=== PATIENT | female | born 1975 | race Caucasian/White ===

== ENCOUNTER → 2017-08-11 | Outpatient (CLI) | payer BC ==
[~2017-08-11] MED LIST: ACET-1256 PO; PRENTAB26 PO
--- NOTE | 2017-08-12 14:19 | MAMMOGRAPHY REPORT ---
BILATERAL DIGITAL SCREENING MAMMOGRAM TOMOSYNTHESIS WITH CAD: 08/11/2017 CLINICAL HISTORY: Routine screening. Patient has no complaints. TECHNIQUE: Breast tomosynthesis in addition to standard 2D mammography was performed. Current study was also evaluated with a Computer Aided Detection (CAD) system. COMPARISON: Comparison is made to exams dated: 08/07/2016 mammogram and 05/17/2015 mammogram - [facility]. BREAST COMPOSITION: There are scattered areas of fibroglandular density in both breasts. FINDINGS: Stable asymmetry in the superior left breast. No suspicious mass, architectural distortion or cluster of microcalcifications is seen. IMPRESSION: ACR BI-RADS CATEGORY 1: NEGATIVE There is no mammographic evidence of malignancy. A 1 year screening mammogram is recommended. The pa tient will receive written notification of the results. Approximately 10% of breast cancers are not detected with mammography. A negative mammographic report should not delay biopsy if a clinically suggestive mass is present. Nusrat Perkins M.D. ay/:08/11/2017 17:31:48 Technical Aid: Crystal Choi, [facility] letter sent: Normal 1/2 BI-RADS Code: ACR BI-RADS Category 1: Negative
== END | disposition home or self-care (01) ==
LOC: C.MAMM 08:19
PROVIDERS: ATTEND Obstetrics & Gynecology
DX: Z12.31 Encounter for screening mammogram for malignant neoplasm of breast (principal)

== ENCOUNTER → 2017-12-02 | Outpatient (CLI) | payer BC, OTHER | END | disposition home or self-care (01) | LOC: C.PAPS 10:56 | PROVIDERS: ATTEND Obstetrics & Gynecology | DX: Z12.4 Encounter for screening for malignant neoplasm of cervix (principal); R87.610 Atypical squamous cells of undetermined significance on cytologic smear of cervix (ASC-US) ==

== ENCOUNTER 2023-08-10 00:41 | Observation (INO) ==
[2023-08-10] MEDS ORDERED: SODIUM CHLORIDE 0.9% 1,000 ML IV STA (00:53)
[2023-08-10] MEDS ORDERED: dilTIAZem HCl 5 MG/ML 5 ML VIAL IV STA ×2 (00:53→01:05)
[2023-08-10] MEDS ORDERED: STAT IV Infusion **Titration per Protocol STA (00:53)
[2023-08-10 01:24] LABS: Hemoglobin 15.1 g/dl (12.0-16.0); Mean Corpuscular Hemoglobin 29.8 pg (25.0-34.0); Mean Corpuscular Hgb Conc 34.3 g/dL (32.0-36.0); Mean Corpuscular Volume 86.8 fL (80.0-100.0); Mean Platelet Volume 11.2 fL (9.4-12.4); Platelet Count 279 K/uL (130-400); RDW Standard Deviation 40.7 fL (36.4-46.3); Red Blood Count 5.07 M/uL (4.20-5.40); White Blood Count 7.88 K/ul (4.8-10.8)
[2023-08-10] MEDS: dilTIAZem HCL 125 MG in DEXTROSE 5% 100 ML IV SCH ×2 (01:30→15:13)
[2023-08-10 01:33] LABS: Albumin Globulin Ratio 1.6 (0.9-2); Albumin Level 4.2 gm/dl (3.4-5.0); BUN Creatinine Ratio 20.8 (10-20); Bilirubin,Total 0.4 mg/dl (0.2-1.0); Creatinine Clr Calc Pharmacy 82.7 ml/min; Est GFR (African American) 105.1 ml/min; Est GFR (Non-African American) 90.7 ml/min; Globulin 2.6 gm/dl (2.5-4.0); Potassium 3.6 mmol/L (3.5-5.1); Pregnancy Test, Serum Negative (Negative); Total Protein 6.8 gm/dl (6.0-8.3)
[2023-08-10 01:44] LABS: Basophils # (auto) 0.06 K/uL (0.00-0.20); Basophils % (auto) 0.8 %; Eosinophils # (auto) 0.21 K/uL (0.00-0.50); Eosinophils % (auto) 2.7 %; Immature Granulocytes # (auto) 0.01 K/uL (0.01-0.20); Immature Granulocytes % (auto) 0.1 %; Lymphocytes # (auto) 4.18 K/uL (1.20-3.40); Monocytes # (auto) 0.64 K/uL (0.11-0.59); Monocytes % (auto) 8.1 %; Neutrophils # (auto) 2.78 K/uL (1.40-6.50); Neutrophils % (auto) 35.3 %
[2023-08-10 01:48] LABS: Thyroid Stimulating Hormone 4.555 uIu/ml (0.300-4.500)
[2023-08-10 01:57] LABS: Partial Thromboplastin Ratio 1.1; Partial Thromboplastin Time 29.8 Seconds (21.0-31.0); Prothrombin Time 10.6 Seconds (9.0-12.0)
[2023-08-10 02:23] LABS: T4 Free Thyroxine 1.01 ng/dl (0.61-1.60)
--- NOTE | 2023-08-10 02:23 | History & Physical Report ---
Date of Service August 10, 2023 Assessment & Plan (1) Atrial fibrillation with rapid ventricular response: Plan: -New onset atrial fibrillation w/ RVR, known time of onset <48 hours though unclear precipitant or trigger per pt's history -Pt hemodynamically stable at present -Electrolytes wnl, TSH unremarkable -Currently in atrial fibrillation with rates improving on diltiazem infusion, goal HR <110 -Continue diltiazem infusion at present -[id number] of 1, deferring anticoagulation on admission -TTE ordered -Cardiology consult placed for AM -Telemetry monitoring (2) Hypotension: Plan: -Per pt report, BP typically around 100/60. Borderline hypotensive in ER with BP 91/57 -S/p 1L NSS bolus in ER -Additional 500cc NSS mIVF ordered -Monitor (3) Hypothyroidism: Plan: -Free T4 wnl, TSH 4.55 -Continue levothyroxine (4) Anxiety: Plan: -Continue home Xanax qHs (5) Lumbosacral radiculopathy at L5: Plan: -Continue home gabapentin Plan FENGI: NPO if potential cardioversion Code status: Full DVT prophylaxis: Low risk, SCDs Isolation: None Disposition: PCU History of Present Illness Chief Complaint: Palpitations Primary Care Provider: Sherie Ash MD Pt is 48 yo F with PMH anxiety, hypothyroidism, lumbar radiculopathy presenting with palpitations. Pt reports onset of palpitations at 9:30 PM on 08/09. States she's had similar palpitations very transiently a few times per year over the last few years but this time it persisted without resolution. She eventually used her Apple watch to measure her heart rate and rhythm, with watch reporting atrial fibrillation and HR ~190. She did not have any chest pain, dizziness, lightheadedness, nausea/vomiting. Denies any PMH or FMH of cardiac disease including arrhythmias. She was advised by to go to ER. Pt has not had any recent illnesses, medication changes, physical exertion, alcohol consumption. Pt arrived to ER in atrial fibrillation with rates in 150s/160s and BP 90s/50s. Initial evaluation- unremarkable CBC, CMP, CXR. TSH elevated at 4.5. ER interventions include 1L NSS bolus, diltiazem IV 10 mg x2, diltiazem infusion. At present, pt reports the palpitations have improved but not resolved. Denies any new complaints. Allergies Allergy/AdvReac Type Severity Reaction Status Date / Time Sulfa (Sulfonamide Allergy Unknown RASH A Verified 08/10/23 01:17 Antibiotics) SMALL CHILD Home Medications Medication Instructions Recorded Confirmed Type ibuprofen 200 mg tablet 400 mg PO DIRECTED PRN Pain 01/02/19 08/10/23 History levonorgestrel 21 mcg/24 hours (8 1 device intrauterine CONTINOUS 01/28/20 08/10/23 History yrs) 52 mg intrauterine device alprazolam 0.5 mg tablet 0.5 mg PO HS 05/31/20 08/10/23 History levothyroxine 25 mcg tablet 25 mcg PO DAILYBB 07/29/22 08/10/23 History (Synthroid) gabapentin 300 mg capsule 300 mg PO HS 08/10/23 08/10/23 History metoprolol succinate 25 mg 25 mg PO DAILY #30 tabs 08/10/23 Rx tablet,extended release 24 hr semaglutide (weight loss) 1.7 1.7 mg subcut WK 08/10/23 08/10/23 History mg/0.75 mL subcutaneous pen injector (Wegovy) Past Med/Surg History Medical History Adult hypothyroidism Anxiety HX DJD (degenerative joint disease) History of anesthesia reaction WOKE UP FREQUENTLY DURING SPINE FUSION PROCEDURE IUD (intrauterine device) in place Mirena 10/14. 09/18 Lumbar back pain with radiculopathy affecting right lower extremity Migraine HX Piriformis syndrome Scoliosis Surgical History H/O arthroscopy of knee right History of colposcopy Dr. Cason, 10/08, negative History of spinal fusion for scoliosis 1991> C3 TO T12 APPROX. ROM IS GOOD PER PT History of tooth extraction S/P tonsillectomy Family History Grandmother (Paternal) [place] disease Breast cancer Grandfather (Maternal) FH: pancreatic cancer Other Asthma Cancer Hypertension Denies family history of Ovarian cancer Colorectal cancer Social History Smoking Status: Never smoker Second Hand Exposure: No; Do You Dip or Chew Tobacco: No; Hx Alcohol Use: Yes Alcohol type: wine Hx Substance Use: No Preferred Language: [place]ican Communication Ability: Effective Implementation Technician Required: No Beliefs That Will Affect Care: None marital status: Current Living Situation: Spouse Current Living Situation Comment: Spouse, 2 children current occupational status: employed Feels Safe at Home: Yes Safety Concerns: Feels Safe At This Time Assistive Devices: Contacts Review of Systems Review of Systems: Per HPI Physical Exam Physical Exam: General: well-appearing, no acute distress HEENT: PERRL, EOMI, conjunctivae clear without injection, anicteric sclerae, moist mucous membranes, clear oropharynx without exudate or erythema Neck: supple, trachea midline, no thyromegaly, no JVD, no cervical lymphadenopathy CV: Irregularly irregular rhythm, tachycardic, normal S1 and S2, no murmurs Resp: CTAB, no increased work of breathing, no crackles or wheezes Abd: Soft, nontender, nondistended, no guarding or rebound, no hepatosplenomegaly MSK: Normal bulk of all four extremities Neuro: AOx3, no focal motor or sensory deficits Skin: no rashes or lesions, warm and dry Ext: no LE peripheral edema or erythema, capillary refill <2s in all four extremities, 2+ LE peripheral pulses b/l Results & Data Results & Data Vital Signs (Past 12 Hours) Vital Signs Temp Pulse Resp BP Pulse Ox O2 Del Method 08/10/23 01:30 107 H 19 102/63 97 Room Air 08/10/23 01:00 160 H 15 103/50 L 97 Room Air 08/10/23 01:00 102 H Room Air 08/10/23 00:58 154 H 08/10/23 00:44 36.5 C 94 H 16 91/57 L 99 Room Air Supervising Physician Co-Signing Physician Notes patient seen and examined, chart reviewed, case discussed with Dr. Mosley and I agree with the assessment and plan as above Resident Activity Tracking Resident Involvement: Resident Care Provided Care Provided: Adult Hospital Medicine
--- NOTE | 2023-08-10 02:40 | Emergency Department Note ---
History of Present Illness General Chief complaint: Arrhythmia/Palpitations Stated complaint: ARRHYTHMIA Time Seen by Provider: 08/10/23 00:47 History of Present Illness Maximum Pain Intensity: 2 This 48-year-old female presents the ER complaining of racing heart who checked her Apple Watch and was concerning for A-fib. Heart rate at home was in the 190s. Patient states she is healthy and no prior heart disease. She does take Synthroid for thyroid disease. Patient denies chest pain, dyspnea, fevers, recent illness, excessive alcohol use, flulike illness, abdominal pain, cough, c ongestion. Patient states she had a normal day nothing excessive. Home Medications Medication Instructions Recorded Confirmed Type ibuprofen 200 mg tablet 400 mg PO DIRECTED PRN Pain 01/02/19 08/10/23 History levonorgestrel 21 mcg/24 hours (8 1 device intrauterine CONTINOUS 01/28/20 08/10/23 History yrs) 52 mg intrauterine device alprazolam 0.5 mg tablet 0.5 mg PO HS 05/31/20 08/10/23 History levothyroxine 25 mcg tablet 25 mcg PO DAILYBB 07/29/22 08/10/23 History (Synthroid) gabapentin 300 mg capsule 300 mg PO HS 08/10/23 08/10/23 History semaglutide (weight loss) 1.7 1.7 mg subcut WK 08/10/23 08/10/23 History mg/0.75 mL subcutaneous pen injector (Wegovy) Allergies Allergy/AdvReac Type Severity Reaction Status Date / Time Sulfa (Sulfonamide Allergy Unknown RASH A Verified 08/10/23 01:17 Antibiotics) SMALL CHILD Past Med/Surg History Medical History Adult hypothyroidism Anxiety HX DJD (degenerative joint disease) History of anesthesia reaction WOKE UP FREQUENTLY DURING SPINE FUSION PROCEDURE IUD (intrauterine device) in place Mirena 10/14. 09/18 Lumbar back pain with radiculopathy affecting right lower extremity Migraine HX Piriformis syndrome Scoliosis Surgical History H/O arthroscopy of knee right History of colposcopy Dr. Cason, 10/08, negative History of spinal fusion for scoliosis 1991> C3 TO T12 APPROX. ROM IS GOOD PER PT History of tooth extraction S/P tonsillectomy Family History Grandmother (Paternal) [place] disease Breast cancer Grandfather (Maternal) FH: pancreatic cancer Other Asthma Cancer Hypertension Denies family history of Ovarian cancer Colorectal cancer Social History Smoking Status: Never smoker Second Hand Exposure: No; Do You Dip or Chew Tobacco: No; Hx Alcohol Use: Yes Alcohol type: wine Hx Substance Use: No Preferred Language: Swedish Communication Ability: Effective Quality Checker Required: No Beliefs That Will Affect Care: None marital status: Current Living Situation: Spouse Current Living Situation Comment: Spouse, 2 children current occupational status: employed Feels Safe at Home: Yes Safety Concerns: Feels Safe At This Time Assistive Devices: Contacts Review of Systems A total of 10 systems reviewed and were otherwise negative Physical Exam Vital Signs Vital Signs - 24 hr 08/10/23 00:44 08/10/23 00:58 08/10/23 01:00 Temperature 36.5 C Temperature Source Temporal Artery Scan Pulse Rate 94 H 154 H Pulse Rate from SpO2 Sensor Respiratory Rate 16 Respiratory Effort / Characteristics Non-Labored Spontaneous Respiratory Depth Normal Blood Pressure 91/57 L Blood Pressure Mean 68 Blood Pressure Position Sitting Pulse Oximetry 99 102 H Oxygen Delivery Method Room Air Room Air Sepsis Recent Fever Within 48 Hours No Sepsis New/Unexplained Change in Mental Status N/A Sepsis Action Taken by Nursing No Action Required 08/10/23 01:00 08/10/23 01:30 Temperature Temperature Source Pulse Rate 160 H 107 H Pulse Rate from SpO2 Sensor 107 H Respiratory Rate 15 19 Respiratory Effort / Characteristics Respiratory Depth Blood Pressure 103/50 L 102/63 Blood Pressure Mean 67 76 Blood Pressure Position Pulse Oximetry 97 97 Oxygen Delivery Method Room Air Room Air Sepsis Recent Fever Within 48 Hours Sepsis New/Unexplained Change in Mental Status Sepsis Action Taken by Nursing VITALS: Vitals are noted on the nurse's note and reviewed by myself. Vital signs tachycardic. GENERAL: Pleasant female, in no acute distress, nondiaphoretic, well-developed well-nourished. SKIN: The skin was without rashes, erythema, edema, or bruising. There is no tenting of the skin. Capillary reflex less than 2 seconds. HEAD: Normocephalic atraumatic. EARS: External auditory canals clear, EYES: Pupils equal round and reactive to light and accommodation. Conjunctivae without injection, sclerae without icterus. Extraocular movements intact. NOSE: Patent, turbinates without inflammation or discharge. MOUTH: Mucous membranes moist. Pharynx without erythema or exudate. Uvula midline. Airway patent. Tongue does not deviate. NECK: Supple without nuchal rigidity. No lymphadenopathy. No thyromegaly. Cervical spine is nontender. No JVD. HEART: Irregularly irregular tachycardic LUNGS: Clear to auscultation bilaterally without wheezes, rales or rhonchi. No retractions or accessory muscle use. ABDOMEN: Positive bowel sounds x 4. Normal tympanic percussion. Soft, nontender, without masses or organomegaly. Talley sign negative. No guarding or rebound tenderness. No CVA tenderness MUSCULOSKELETAL: No muscle atrophy, erythema, or edema noted. NEURO: Patient was alert and oriented to person place and time. Normal sensation to light and sharp touch. No focal neurological deficits. Course Administered Medications Diltiazem HCl 125 mg/ Dextrose 125 mls @ 10 mls/hr IV .[id number] [facility]; Protocol Stop: 09/09/23 00:59 Last Titration: 08/10/23 01:58 Dose: 10 mg/hr, 10 mls/hr Documented By: NORA Co-signed By: NATHALY Admin: 08/10/23 01:30 Dose: 5 mg/hr, 5 mls/hr Documented By: NORA Co-signed By: HYACINTH Discontinued Medications Diltiazem HCl (Diltiazem Hcl 5 Mg/Ml 5 Ml Vial) 10 mg IV NOW STA Stop: 08/10/23 00:54 Last Admin: 08/10/23 00:58 Dose: 10 mg Documented By: ELENA Co-signed By: ZEHRA Diltiazem HCl (Diltiazem Hcl 5 Mg/Ml 5 Ml Vial) 10 mg IV NOW STA Stop: 08/10/23 01:06 Last Admin: 08/10/23 01:10 Dose: 10 mg Documented By: NORA Co-signed By: HYACINTH Sodium Chloride (Nss) 1,000 mls @ 999 mls/hr IV .[id number] STA Stop: 08/10/23 01:53 Last Admin: 08/10/23 00:57 Dose: 999 mls/hr Documented By: AN Critical Care Time Critical Care Time: Yes Total Critical Care Time: 35 I have personally spent 35 minutes of critical care time in the direct management of this patient. This includes bedside care, interpretation of diagnostic studies, and testing, discussion with consultants, patient, and family members, and other required patient management activities. This 35 minutes is in excess of all separately billable procedures. Medical Decision Making Medical Records Attestation: I reviewed the patient's medical records. Home Medications Current Medication List: was personally reviewed by me Laboratory Data Attestation: I reviewed the patient's lab results. 08/10/23 00:49 08/10/23 00:49 Lab Results 08/10/23 08/10/23 08/10/23 Range/Units 00:49 00:49 00:49 WBC 7.88 (4.8-10.8) K/ul RBC 5.07 (4.20-5.40) M/uL Hgb 15.1 (12.0-16.0) g/dl Hct 44.0 (37.0-47.0) % MCV 86.8 (80.0-100.0) fL MCH 29.8 (25.0-34.0) pg MCHC 34.3 (32.0-36.0) g/dL RDW Std Deviation 40.7 (36.4-46.3) fL RDW Coeff of Luis 13.0 (11.5-14.5) % Plt Count 279 (130-400) K/uL MPV 11.2 (9.4-12.4) fL Immature Gran % (Auto) 0.1 % Neut % (Auto) 35.3 % Lymph % (Auto) 53.0 % Mcculloch % (Auto) 8.1 % Eos % (Auto) 2.7 % Baso % (Auto) 0.8 % Neut # (Auto) 2.78 (1.40-6.50) K/uL Lymph # (Auto) 4.18 H (1.20-3.40) K/uL Mcculloch # (Auto) 0.64 H (0.11-0.59) K/uL Eos # (Auto) 0.21 (0.00-0.50) K/uL Baso # (Auto) 0.06 (0.00-0.20) K/uL Immature Gran # (Auto) 0.01 (0.01-0.20) K/uL PT (9.0-12.0) Seconds INR (0.9-1.1) APTT (21.0-31.0) Seconds PTT Ratio Sodium 142 (136-145) mmol/L Potassium 3.6 (3.5-5.1) mmol/L Chloride 111 H (98-107) mmol/L Carbon Dioxide 25 (21-32) mmol/L Anion Gap 6 (3-11) BUN 16 (6-23) mg/dl Creatinine 0.77 (0.6-1.2) mg/dl Est Cr Clr Drug Dosing 82.7 ml/min Est GFR ( Amer) 105.1 ml/min Est GFR (Non-Af Amer) 90.7 ml/min BUN/Creatinine Ratio 20.8 H (10-20) Glucose 62 L (70-99(Fasting)) mg/dl Calcium 9.0 (8.6-10.3) mg/dl Magnesium 2.0 (1.7-2.4) mg/dl Total Bilirubin 0.4 (0.2-1.0) mg/dl AST 15 (13-39) U/L ALT 9 (7-52) U/L Alkaline Phosphatase 49 (34-104) U/L Total Creatine Kinase 31 (26-192) U/L Total Protein 6.8 (6.0-8.3) gm/dl Albumin 4.2 (3.4-5.0) gm/dl Globulin 2.6 (2.5-4.0) gm/dl Albumin/Globulin Ratio 1.6 (0.9-2) TSH (0.300-4.500) uIu/ml Free T4 (0.61-1.60) ng/dl HCG, Qual Negative (Negative) 08/10/23 08/10/23 Range/Units 00:49 00:49 WBC (4.8-10.8) K/ul RBC (4.20-5.40) M/uL Hgb (12.0-16.0) g/dl Hct (37.0-47.0) % MCV (80.0-100.0) fL MCH (25.0-34.0) pg MCHC (32.0-36.0) g/dL RDW Std Deviation (36.4-46.3) fL RDW Coeff of Luis (11.5-14.5) % Plt Count (130-400) K/uL MPV (9.4-12.4) fL Immature Gran % (Auto) % Neut % (Auto) % Lymph % (Auto) % Mcculloch % (Auto) % Eos % (Auto) % Baso % (Auto) % Neut # (Auto) (1.40-6.50) K/uL Lymph # (Auto) (1.20-3.40) K/uL Mcculloch # (Auto) (0.11-0.59) K/uL Eos # (Auto) (0.00-0.50) K/uL Baso # (Auto) (0.00-0.20) K/uL Immature Gran # (Auto) (0.01-0.20) K/uL PT 10.6 (9.0-12.0) Seconds INR 1.0 (0.9-1.1) APTT 29.8 (21.0-31.0) Seconds PTT Ratio 1.1 Sodium (136-145) mmol/L Potassium (3.5-5.1) mmol/L Chloride (98-107) mmol/L Carbon Dioxide (21-32) mmol/L Anion Gap (3-11) BUN (6-23) mg/dl Creatinine (0.6-1.2) mg/dl Est Cr Clr Drug Dosing ml/min Est GFR ( Amer) ml/min Est GFR (Non-Af Amer) ml/min BUN/Creatinine Ratio (10-20) Glucose (70-99(Fasting)) mg/dl Calcium (8.6-10.3) mg/dl Magnesium (1.7-2.4) mg/dl Total Bilirubin (0.2-1.0) mg/dl AST (13-39) U/L ALT (7-52) U/L Alkaline Phosphatase (34-104) U/L Total Creatine Kinase (26-192) U/L Total Protein (6.0-8.3) gm/dl Albumin (3.4-5.0) gm/dl Globulin (2.5-4.0) gm/dl Albumin/Globulin Ratio (0.9-2) TSH 4.555 H (0.300-4.500) uIu/ml Free T4 1.01 (0.61-1.60) ng/dl HCG, Qual (Negative) Imaging Data Attestation: I personally reviewed and interpreted this imaging study as follows: MDM Narrative Prior records/ancillary studies reviewed. Triage Nursing notes reviewed. Additional history obtained from nursing. The patient's history was concerning for palpitations. Differential diagnosis: Etiologies such as premature contractions, electrolyte abnormality, cardiac dysrhythmia, thyroid dysfunction, pulmonary embolism, infection, gastrointestinal, as well as others were entertained. Physical examination: Benign as above. ER treatment provided: Cardizem bolus and then drip was initiated, IV fluids On reassessment the patient felt better. Diagnostic interpretation by me: An order was placed for continuous cardiac monitoring. The monitor shows a rate of irregularly irregular with a A-fib rhythm per my interpretation. The electrocardiogram was ordered for palpitaions ECG: Irregularly irregular, no acute ST-T wave changes, ventricular rate of 164. Impression A-fib with RVR independently interpreted by myself The labs Independently Interpreted by myself revealed no worrisome leukocytos is, hypoglycemia patient was fed and repeat sugar was improved. Negative hCG. Normal magnesium. Slightly elevated TSH with a normal T4 Imaging studies: Chest x-ray with no acute consolidation, pneumothorax or free air per my independent rotation CHADS2 Score Sex (male 0, female 1): 1 Congestive HF (1): 0 Hypertension (1) :0 Age >75 years (1) :0 Diabetes mellitus (1):0 Stroke/TIA/TE (2): 0 Score: 1 CHADS2 Unadjusted ischemic stroke rate (% per year) 0: 0.6% 1: 3.0% 2: 4.2% 3: 7.1% 4: 11.1% 5: 12.5% 6: 13.0% Consultation: A consultation was placed with the hospitalist. The case was discussed and diagnostics were reviewed. The patient was evaluated in the ER for further treatment. This appears to be consistent with new onset A-fib with RVR. Patient was given 2 boluses of Cardizem. She was then initiated on a drip. Heart rate did improve. Labs and diagnostics are independent turbid by myself. Medicine was consulted and the case was discussed. Patient would be mated to the medical service for further evaluation and treatment. Patient is agreeable.. By the evaluation outlined above emergent etiologies such as electrolyte abnormality, thyroid dysfunction, pulmonary embolism, infection, as well as others were deemed relatively unlikely. The pt informed about the findings as listed above. All questions were answered and pleased with the treatment. The chart was completed utilizing [employer] Speech voice recognition software. Grammatical errors, random word insertions, pronoun errors, and incomplete sentences are an occassional consequence of this system due to software limitations, ambient noise, and hardware issues. Any formal questions or concerns about the content, text, or information contained within the body of this dictation should be directly addressed to the physician classroom assistant for clarification. Impression & Plan Atrial fibrillation with rapid ventricular response Discharge Plan Visit Data Chief Complaint: Arrhythmia/Palpitations Stated Complaint: ARRHYTHMIA ED Provider: Court Ocasio ED Midlevel Provider: Lulu Nicholas Discharge Problem: Atrial fibrillation with rapid ventricular response Patient Disposition: Admitted As Inpatient Condition: Good
[2023-08-10] MEDS ORDERED: SODIUM CHLORIDE 0.9% 500 ML IV SCH (02:58)
[2023-08-10] MEDS ORDERED: LACTATED RINGER'S 1,000 ML IV ONE (06:22)
[2023-08-10] MEDS ORDERED: LEVOTHYROXINE SODIUM 25 MCG TABLET PO SCH (06:30)
--- NOTE | 2023-08-10 06:57 | XRay Report ---
XR chest 1V portable CLINICAL HISTORY: Dysrhythmia. COMPARISON STUDY: Chest radiograph May 31, 2010. FINDINGS: Scoliosis hardware is incidentally noted. Lung volumes are normal. Lungs are clear. There i s no pneumothorax or pleural effusion. Cardiac size is stable. Mediastinal contours are normal. There is no evidence for pulmonary edema. IMPRESSION: No acute cardiopulmonary findings. ACT 112: Negative or not required by law. Electronically signed by: Petey Obregon M.D. 08/10/2023 6:56 AM
[2023-08-10] MEDS ORDERED: METOPROLOL TARTRATE 1 MG/ML VIAL IV STA (09:47)
[2023-08-10] MEDS ORDERED: LABETALOL HCL IV 5 MG/ML 20ML IV ONE (09:49)
--- NOTE | 2023-08-10 09:58 | Cardiology Consultation ---
Date of Consultation August 10, 2023 Assessment & Plan (1) Atrial fibrillation with rapid ventricular response: Mrs. 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 She was in her usual state of health yesterday until approximately 9:30 p.m. when she developed a sensation of palpitations described as her "heart skipping around" and a very erratic and fast pulse rate. She could feel these palpitations in her chest, throat, and upper abdomen but denies any associated symptoms. She specifically denies any associated nausea, vomiting, diaphoresis, dyspnea, chest discomfort, chest pain, or lightheadedness. She was just sitting on her sofa at home watching TV with her and child when her palpitations started. As these palpitations persisted she decided to lie down in bed until her palpitations resolved. She put on her Apple watch to do a rhythm strip and it kept giving a message that she was in A-Fib with HR's as high as 194 bpm. Unfortunately her palpitations persisted into the night, so she decided to be evaluated in our ER. Her initial EKG this a.m. at 0052 showed A-Fib with RVR at 164 bpm, poor R wave progression in V1 and V2. Compared to prior EKG from 05/31/20; A-Fib with RVR has replaced NSR. Substation Operator Transforming shows A-Fib with intermittent RVR, HR is currently in the 80's and 90's. Laboratories show a WBC of 7.88, Hgb 15.1 g/dL, Hct 44%, and platelet count is 245358. Serum K is 3.6 mmol/L, serum Mg is normal at 2.o mg/dL. TSH is elevated at 4.5555 uIu/mL. CXR shows "no acute processes." Patient is currently on IV Diltiazem at 10 mg/hour and she just finished a 1 L Lactated Ringer. At the current time, she states that her palpitations are much less intense and much less severe than they were last night -- likely because her heart rate is much better controlled. Patient has not experienced any angina pectoris or anginal equivalent symptoms, overt signs or symptoms of heart failure, nor has she had any symptoms suggestive of stroke or mini stroke. We had a long discussion regarding what atrial fibrillation is, the natural history of atrial fibrillation and various management strategies. Her [id number] is 1 based on her gender so anticoagulation is not indicated. We reviewed her echocardiogram in detail. She has normal LV systolic function, no significant valvular abnormalities, LVEF is 55% to 60%. Recommend the followin. Continue Diltiazem drip to control heart rate. 2. Give Lopressor 5 mg now x 1 dose, we will then assess her response. 3. I am hopeful she will convert over to a normal sinus rhythm on her own. 4. Continue to monitor vital signs closely. Continue teletypesetter monitor. 5. If A-Fib persists, would recommend either treating her with Ibutilide IVP vs Flecainide 300 mg x 1 dose vs elective electrical cardioversion. (2) Hypotension: Her current BP is 97/70, but she is completely asymptomatic. -- Continue IVF's. -- If BP falls further, reduce or discontinue diltiazem drip. (3) Hypothyroidism: TSH is elevated on admission 4.5555 uIu/mL with a normal T4 -- Continue Synthroid 25 mcg daily. This can be adjusted by her PCP as an outpatient. Thank you for asking us to see this patient consultation. We will continue to follow along while hospitalized and following discharge. History of Present Illness Reason for Consultation: -- New onset A-Fib with RVR. Requesting Physician: Clemente August DO Attending Physician: David Otero MD History of Present Illness Mrs. Malave is a 48 year old female with a history of Hypothyroidism, Scoliosis s/p Boudreaux Rods 1991, DJD, Anxiety, and Lumbar Degenerative Disc Disease who was in her usual state of health yesterday until approximately 9:30 p.m. when she developed a sensation of palpitations described as her "heart skipping around" and a very erratic and fast pulse rate. She could feel these palpitations in her chest, throat, and upper abdomen but denies any associated symptoms. She specifically denies any associated nausea, vomiting, diaphoresis, dyspnea, chest discomfort, chest pain, or lightheadedness. She was just sitting on her sofa at home watching TV with her and child when her palpitations started. As these palpitations persisted she decided to lie down in bed until her palpitations resolved. She put on her Apple watch to do a rhythm strip and it kept giving a message that she was in A-Fib with HR's as high as 194 bpm. Unfortunately her palpitations persisted into the night, so she decided to be evaluated in our ER. Her initial EKG this a.m. at 0052 showed A-Fib with RVR at 164 bpm, poor R wave progression in V1 and V2. Compared to prior EKG from 05/31/20; A-Fib with RVR has replaced NSR. Substation Operator Transforming shows A-Fib with intermittent RVR, HR is currently in the 80's and 90's. Laboratories show a WBC of 7.88, Hgb 15.1 g/dL, Hct 44%, and platelet count is 210242. Serum K is 3.6 mmol/L, serum Mg is normal at 2.o mg/dL. TSH is elevated at 4.5555 uIu/mL. CXR shows "no acute processes." Patient is currently on IV Diltiazem at 10 mg/hour and she just finished a 1 L Lactated Ringer. At the current time, she states that her palpitations are much less intense and much less severe than they were last night. Patient specifically denies any symptoms suggestive of stroke or mini stroke. She denies any exertional chest pain, heaviness, tightness, pressure, or discomfort. She denies any exertional neck, jaw, back, or arm pain. She denies any shortness of breath, unusual dyspnea on exertion, orthopnea, or PND. She denies any syncope or near syncope. Allergies Allergy/AdvReac Type Severity Reaction Status Date / Time Sulfa (Sulfonamide Allergy Unknown RASH A Verified 08/10/23 01:17 Antibiotics) SMALL CHILD Home Medications Medication Instructions Recorded Confirmed Type ibuprofen 200 mg tablet 400 mg PO DIRECTED PRN Pain 01/02/19 08/10/23 History levonorgestrel 21 mcg/24 hours (8 1 device intrauterine CONTINOUS 01/28/20 08/10/23 History yrs) 52 mg intrauterine device alprazolam 0.5 mg tablet 0.5 mg PO HS 05/31/20 08/10/23 History levothyroxine 25 mcg tablet 25 mcg PO DAILYBB 07/29/22 08/10/23 History (Synthroid) gabapentin 300 mg capsule 300 mg PO HS 08/10/23 08/10/23 History semaglutide (weight loss) 1.7 1.7 mg subcut WK 08/10/23 08/10/23 History mg/0.75 mL subcutaneous pen injector (Yanique) Patient History Medical History Adult hypothyroidism Anxiety HX DJD (degenerative joint disease) History of anesthesia reaction WOKE UP FREQUENTLY DURING SPINE FUSION PROCEDURE IUD (intrauterine device) in place Mirena 10/14. 09/18 Lumbar back pain with radiculopathy affecting right lower extremity Migraine HX Piriformis syndrome Scoliosis Surgical History H/O arthroscopy of knee right History of colposcopy Dr. Cason, 10/08, negative History of spinal fusion for scoliosis 1991> C3 TO T12 APPROX. ROM IS GOOD PER PT History of tooth extraction S/P tonsillectomy Family History Grandmother (Paternal) Vilas disease Breast cancer Grandfather (Maternal) FH: pancreatic cancer Other Asthma Cancer Hypertension Denies family history of Ovarian cancer Colorectal cancer Social History Smoking Status: Never smoker Second Hand Exposure: No; Do You Dip or Chew Tobacco: No; Hx Alcohol Use: Yes Alcohol type: wine Hx Substance Use: No Preferred Language: Ukrainian Communication Ability: Effective Back Tender Cloth Printing Required: No Beliefs That Will Affect Care: None marital status: Current Living Situation: Spouse Current Living Situation Comment: Spouse, 2 children current occupational status: employed Feels Safe at Home: Yes Safety Concerns: Feels Safe At This Time Assistive Devices: Contacts Review of Systems Review of Systems: 10 point ROS completed and is negative with the exception of what is mentioned in the HPI. Physical Exam Physical Exam: GENERAL: Patient in no acute distress. HEENT: Head is atraumatic, normocephalic. EOM's intact. Facies symmetric. No perioral cyanosis. NECK: No JVD. JVP is not elevated. Carotid upstrokes are + 2 bilaterally without obvious bruits. CHEST/LUNGS: Clear to auscultation throughout all lung del cid. No wheezes, rales, or crackles. CVS: S1 and S2 are irregularly irregular at 92 bpm. No murmurs, gallops, or rubs. PMI is nondisplaced. No lifts, heaves, or thrills. No abdominal aortic or renal bruits. ABDOMINAL EXAM: Bowel sounds are present. No masses, organomegaly, or tenderness. EXTREMITIES: No clubbing or cyanosis. No edema. Intact posterior tibial and radial pulses bilaterally. NEUROLOGIC EXAM: Patient is awake, alert, and oriented. Pleasant and cooperative. Answers questions appropriately. Speech is clear. Results & Data Vital Signs (Past 12 Hours) Vital Signs Temp Pulse Pulse Resp BP BP Pulse Ox 08/10/23 08:56 85 18 97/72 L 99 08/10/23 07:48 83 18 109/47 L 98 08/10/23 07:25 79 08/10/23 06:30 80 16 84/60 L 99 08/10/23 06:00 87 14 87/50 L 99 08/10/23 05:34 88 15 98/56 L 97 08/10/23 05:00 91 H 17 88/44 L 95 08/10/23 04:30 120 H 14 99/66 L 95 08/10/23 04:00 111 H 17 100/65 95 08/10/23 03:30 113 H 18 101/68 98 08/10/23 03:00 115 H 16 102/72 99 08/10/23 02:30 123 H 16 113/74 99 08/10/23 02:00 129 H 15 97/68 L 97 08/10/23 03:42 08/10/23 02:37 124 H 21 113/74 99 08/10/23 01:30 107 H 19 102/63 97 08/10/23 01:00 160 H 15 103/50 L 97 08/10/23 01:00 102 H 08/10/23 00:58 154 H 08/10/23 00:44 36.5 C 94 H 16 91/57 L 99 Pulse Ox O2 Del Method O2 Del Method 08/10/23 08:56 Room Air 08/10/23 07:48 Room Air 08/10/23 07:25 08/10/23 06:30 Room Air 08/10/23 06:00 Room Air 08/10/23 05:34 Room Air 08/10/23 05:00 Room Air 08/10/23 04:30 Room Air 08/10/23 04:00 Room Air 08/10/23 03:30 Room Air 08/10/23 03:00 Room Air 08/10/23 02:30 Room Air 08/10/23 02:00 Room Air 08/10/23 03:42 95 Room Air 08/10/23 02:37 Room Air 08/10/23 01:30 Room Air 08/10/23 01:00 Room Air 08/10/23 01:00 Room Air 08/10/23 00:58 08/10/23 00:44 Room Air Laboratory Results Laboratory Results - last 24 hr 08/10/23 08/10/23 08/10/23 00:49 00:49 00:49 WBC 7.88 RBC 5.07 Hgb 15.1 Hct 44.0 MCV 86.8 MCH 29.8 MCHC 34.3 RDW Std Deviation 40.7 RDW Coeff of Luis 13.0 Plt Count 279 MPV 11.2 Immature Gran % (Auto) 0.1 Neut % (Auto) 35.3 Lymph % (Auto) 53.0 [place] % (Auto) 8.1 Eos % (Auto) 2.7 Baso % (Auto) 0.8 Neut # (Auto) 2.78 Lymph # (Auto) 4.18 H [place] # (Auto) 0.64 H Eos # (Auto) 0.21 Baso # (Auto) 0.06 Immature Gran # (Auto) 0.01 PT INR APTT PTT Ratio Sodium 142 Potassium 3.6 Chloride 111 H Carbon Dioxide 25 Anion Gap 6 BUN 16 Creatinine 0.77 Est Cr Clr Drug Dosing 82.7 Est GFR ( Amer) 105.1 Est GFR (Non-Af Amer) 90.7 BUN/Creatinine Ratio 20.8 H Glucose 62 L POC Glucose Calcium 9.0 Magnesium 2.0 Total Bilirubin 0.4 AST 15 ALT 9 Alkaline Phosphatase 49 Total Creatine Kinase 31 Total Protein 6.8 Albumin 4.2 Globulin 2.6 Albumin/Globulin Ratio 1.6 TSH Free T4 HCG, Qual Negative 08/10/23 08/10/23 08/10/23 00:49 00:49 02:40 WBC RBC Hgb Hct MCV MCH MCHC RDW Std Deviation RDW Coeff of Luis Plt Count MPV Immature Gran % (Auto) Neut % (Auto) Lymph % (Auto) [place] % (Auto) Eos % (Auto) Baso % (Auto) Neut # (Auto) Lymph # (Auto) [place] # (Auto) Eos # (Auto) Baso # (Auto) Immature Gran # (Auto) PT 10.6 INR 1.0 APTT 29.8 PTT Ratio 1.1 Sodium Potassium Chloride Carbon Dioxide Anion Gap BUN Creatinine Est Cr Clr Drug Dosing Est GFR ( Amer) Est GFR (Non-Af Amer) BUN/Creatinine Ratio Glucose POC Glucose 109 H Calcium Magnesium Total Bilirubin AST ALT Alkaline Phosphatase Total Creatine Kinase Total Protein Albumin Globulin Albumin/Globulin Ratio TSH 4.555 H Free T4 1.01 HCG, Qual Diagnostic Findings CXR 08/10/23: Scoliosis hardware is incidentally noted. Lung volumes are normal. Lungs are clear. There is no pneumothorax or pleural effusion. Cardiac size is stable. Mediastinal contours are normal. There is no evidence for pulmonary edema. IMPRESSION: -- No acute cardiopulmonary findings. Medications Administered Medications ibuprofen 200 mg tablet 400 mg PO DIRECTED PRN Pain 01/02/19 [History Confirmed 08/10/23] levonorgestrel 21 mcg/24 hours (8 yrs) 52 mg intrauterine device 1 device intrauterine CONTINOUS 01/28/20 [History Confirmed 08/10/23] alprazolam 0.5 mg tablet 0.5 mg PO HS 05/31/20 [History Confirmed 08/10/23] levothyroxine 25 mcg tablet (Synthroid) 25 mcg PO DAILYBB 07/29/22 [History Confirmed 08/10/23] gabapentin 300 mg capsule 300 mg PO HS 08/10/23 [History Confirmed 08/10/23] semaglutide (weight loss) 1.7 mg/0.75 mL subcutaneous pen injector (Wegovy) 1.7 mg subcut WK 08/10/23 [History Confirmed 08/10/23] Home Medications Alprazolam (Alprazolam 0.5 Mg Tablet) 0.5 mg PO HS MANISHA Stop: 09/09/23 20:59 Gabapentin (Gabapentin 300 Mg Cap) 300 mg PO HS MANISHA Stop: 09/09/23 20:59 Diltiazem HCl 125 mg/ Dextrose 125 mls @ 10 mls/hr IV .[id number] MANISHA; Protocol Stop: 09/09/23 00:59 Last Titration: 08/10/23 05:59 Dose: 10 mg/hr, 10 mls/hr Levothyroxine Sodium (Levothyroxine Sodium 25 Mcg Tablet) 25 mcg PO DAILYBB MANISHA Stop: 09/09/23 06:29 Last Admin: 08/10/23 07:28 Dose: 25 mcg PG Care Time/CCT Total # of Minutes Spent Total Time Spent with Patient: Total time spent is greater than 50% in coordination of care (as documented) at patient's floor/unit and/or counseling patient:46 [place] [address] INT INP/OBS CARE 2/55MIN Patient Type New History Comprehensive Exam Comprehensive Medical Decision Making Moderate Complexity Diagnoses Atrial fibrillation with rapid ventricular response I48.91 Hypotension I95.9 Hypothyroidism E03.9 Time Spent (min) 58
--- NOTE | 2023-08-10 12:08 | Electrocardiogram Report ---
Test Reason : Blood Pressure : / mmHG Vent. Rate : 164 BPM Atrial Rate : 000 BPM P-R Int : 000 ms QRS Dur : 058 ms QT Int : 226 ms P-R-T Axes : 000 000 011 degrees QTc Int : 373 ms Atrial fibrillation with rapid ventricular response Septal infarct (cited on or before 10-AUG-2023) Abnormal ECG When compared with ECG of 31-MAY-2020 11:17, Atrial fibrillation has replaced Sinus rhythm Vent. rate has increased BY 91 BPM Non-specific change in ST segment in Lateral leads Nonspecific T wave abnormality, worse in Inferior leads Confirmed by David Otero ([id number]) on 08/10/2023 12:08:00 PM Referred By: REFERRED SELF Confirmed By:David Otero
--- NOTE | 2023-08-10 14:07 | XCELERA ---
[id number]
--- NOTE | 2023-08-10 18:00 | Discharge Summary ---
Date of Service August 10, 2023 Admission HPI Per Admitting Provider Pt is 48 yo F with PMH anxiety, hypothyroidism, lumbar radiculopathy presenting with palpitations. Pt reports onset of palpitations at 9:30 PM on 08/09. States she's had similar palpitations very transiently a few times per year over the last few years but this time it persisted without resolution. She eventually used her Apple watch to measure her heart rate and rhythm, with watch reporting atrial fibrillation and HR ~190. She did not have any chest pain, dizziness, lightheadedness, nausea/vomiting. Denies any PMH or FMH of cardiac disease including arrhythmias. She was advised by to go to ER. Pt has not had any recent illnesses, medication changes, physical exertion, alcohol consumption. Pt arrived to ER in atrial fibrillation with rates in 150s/160s and BP 90s/50s. Initial evaluation- unremarkable CBC, CMP, CXR. TSH elevated at 4.5. ER interventions include 1L NSS bolus, diltiazem IV 10 mg x2, diltiazem infusion. At present, pt reports the palpitations have improved but not resolved. Denies any new complaints. Admission Exam Per Admitting Provider General: well-appearing, no acute distress HEENT: PERRL, EOMI, conjunctivae clear without injection, anicteric sclerae, moist mucous membranes, clear oropharynx without exudate or erythema Neck: supple, trachea midline, no thyromegaly, no JVD, no cervical lymp hadenopathy CV: Irregularly irregular rhythm, tachycardic, normal S1 and S2, no murmurs Resp: CTAB, no increased work of breathing, no crackles or wheezes Abd: Soft, nontender, nondistended, no guarding or rebound, no hepatosplenomegaly MSK: Normal bulk of all four extremities Neuro: AOx3, no focal motor or sensory deficits Skin: no rashes or lesions, warm and dry Ext: no LE peripheral edema or erythema, capillary refill <2s in all four extremities, 2+ LE peripheral pulses b/l Principal Diagnosis a. fib Discharge Exam Gen: well appearing female in NAD HEENT: AT [place] Resp: CTAB no wheezing no increased work of breathing CV: irregularly irregular no m/r/g clinically well perfused Abd: non-distended MSK: no obvious deformities Skin: no rashes or bruising noted Neuro: alert and oriented Psych: appropriate mood and affect Discharge Data Allergies Allergy/AdvReac Type Severity Reaction Status Date / Time Sulfa (Sulfonamide Allergy Unknown RASH A Verified 08/10/23 01:17 Antibiotics) SMALL CHILD Consultations 08/10/23 01:37 ED Decision to Admit Stat 08/10/23 02:22 Consult Cardiology Routine Hospital Course (1) Atrial fibrillation with rapid ventricular response: #A fib with RVR New onset atrial fibrillation w/RVR - no obvious triggers. No alcohol use or recent illnesses. Electrolytes WNL. TSH 4.55. Cards consulted - appreciate recs. Patient treated with dilt bolus x2 then placed on a dilt drip. Patient then trialed on metoprolol and converted to NSR around 15:00. [id number] of 1 - can defer on anticoagulation for now. ECHO without atrial dilatation and normal EF. Patient stable for discharge home on 25 mg metoprolol succinate QD. Follow up with PCP. #Hypothyroidism Patient on levothyroxine 25 mcg. Has been stable for some time. TSH ordered by PCP WNL a few months ago. TSH on admit 4.55. Would rec recheck on an outpatient basis. #Hypotension Asymptomatic. Likely in the setting of dilt use. Improved with NS bolus. Monitored during hospital stay. #Anxiety Control home Xanax QHS #Lumbosacral radiculopathy L5 Continue home gabapentin. FENGI: regular Code status: Full DVT prophylaxis: Low risk, SCDs Isolation: None Disposition: PCU (2) Hypotension: (3) Hypothyroidism: (4) Anxiety: (5) Lumbosacral radiculopathy at L5: Total Time Total Time Spent Total Time Spent (In Minutes): <30 Discharge Plan Discharge Items Patient Disposition: Home - Self-Care Reason For Visit: AF W/ RVR Discharge Diagnosis: a. fib w/ RVR Condition on Discharge: Good Activity: Per Instructions section Non-emergency contact: Primary Care Provider Call non-emergency contact if: your symptoms worsen Follow-up/Referrals: Sherie Ash MD [Primary Care Provider] - (Patient will make follow up appointment with PCP.) Diet: Regular Addtl Attending Provider Instructions: You were admitted to the hospital for atrial fibrillation with rapid ventricular response. We were able to obtain control of your heart rate with metoprolol. We will continue with this medication on an outpatient basis. We obtained an echocardiogram which was normal. Your TSH was slightly elevated, so you should have this repeat in a few weeks outpatient. A discharge summary will be sent to your primary care physician to ensure continuity of care. Please bring this discharge summary with you to your next office appointment so that your provider can review it at that time. Follow-up appointments: We have requested a follow-up appointment with your primary care physician within one week of discharge. Please call their office if you do not hear from them. Keep all your follow-up appointments as already scheduled. If you cannot make an appointment, notify your provider. Medications: Your medication list has been reviewed and reconciled upon discharge to ensure accuracy and continuity of care. An updated list of all your medications is included with your hospital discharge paperwork. Please review this list closely, and make note of any changes. We sent a new medication called metoprolol to your pharmacy. Take 25 mg daily. If you have any issues filling these prescriptions, please call [phone] and ask to leave a message for Dr. Gr. Take your medications as instructed; do not skip a dose of your medicines. Make sure all of your doctors know every medicine you are taking (including [id number] medicines, vitamins, and supplements). Call your primary care provider before taking any new medicines (including over- the-counter medicines, vitamins, and supplements), because some of these may interact with your current medications, or may make your symptoms worse. Tell your primary care provider if you cannot afford your medications. CONTACT YOUR PRIMARY CARE PROVIDER if you experience any of the following: lightheadedness, dizziness nausea or vomiting difficulty following your treatment plan, or difficulty taking medications CALL 911 OR GO TO THE EMERGENCY DEPARTMENT if you experience any of the following: Sudden, severe abdominal pain or nausea/vomiting Severe chest pain, or chest pain that radiates (moves) to your jaw or arm Sudden, severe shortness of breath or difficulty breathing Thank you for allowing us to participate in your care Pending Studies at Discharge: No Stand-Alone Forms: My [employer], Smoking Cessation Medications and DC Order Prescriptions: New metoprolol succinate 25 mg tablet extended release 24 hr 25 mg PO DAILY Qty: 30 1RF Continued levonorgestrel 20 mcg/24 hours (5 yrs) 52 mg intrauterine device 1 device intrauterine CONTINOUS Patient Comments: placed 10/01/15 Dr. Cason ibuprofen 200 mg Tablet 400 mg PO DIRECTED PRN (Reason: Pain) alprazolam 0.5 mg tablet 0.5 mg PO HS gabapentin 300 mg capsule 300 mg PO HS Wegovy 1.7 mg/0.75 mL pen injector 1.7 mg SUBCUT WK Rx Instructions: FRIDAYS levothyroxine [Synthroid] 25 mcg tablet 25 mcg PO DAILYBB Discharge Orders: Discharge Order (Routine); Ordered 08/10/23 Ordered By: Christina Gr Admission Data Admit Date/Time: 08/10/23 02:22 Attending Provider: Clemente August Admit Provider: Dario Mosley Primary Care Provider: Sherie Ash Other Providers: Jabari Thornton ; Paxton Florez ; David Otero ; Chilango Oswald ; Shabbir Mcelroy ; Umm Salgado ; Jessenia Polanco ; Carl Castro ; Matthieu Earl ; Shabbir Andrew V. ; Sidney Vences ; Yadiel Dubon ; Zack Florez ; Jerry Davidson ; Nusrat Prabhakar ; Sabas Moseley ; Iona Calderon ; Melvin Mg Jr ; Margo Barboza Other Interventions: Discharge Summary Assessment (RN) Last Done: 08/10/23 17:58 Supervising Physician Co-Signing Physician Notes I personally examined the patient and verified all troncoso points of history and exam, discussed case, and agree with decision making with Dr Gr feeling better but still feels some palpitations. later converted to NSR and asked to go home. cardiology input appreciated vitals noted, in general she is awake and alert pleasant no distress. HEENT normocephalic atraumatic mucous membranes moist. Breathing unlabored no accessory muscle use good effort. Skin shows no rashes no pallor or icterus. Neuro without focal deficits. New onset A-fib/RVRnow converted to sinus rhythm. Safe/stable for home. Discussed rate control versus rhythm control strategies, obviously right now she is both. Discussed the nuanced discussion of anticoagulation in a patient with a low [id number], she expressed understanding and will consider her options. For home, close outpatient PCP and cardiology follow-up. Resident Activity Tracking Resident Involvement: Resident Care Provided Care Provided: Adult Hospital Medicine
--- NOTE | 2023-08-10 18:57 | Billing Data ---
Date of Service August 10, 2023 Coding Level of Care Code 53910 IN/OBS DISCH 30 MIN/LESS
[2023-08-10] MEDS ORDERED: GABAPENTIN 300 MG CAP PO SCH (21:00)
[2023-08-10] MEDS ORDERED: ALPRAZolam 0.5 MG TABLET PO SCH (21:00)
--- NOTE | 2023-08-10 21:22 | Billing Data ---
Date of Service August 10, 2023 Coding Level of Care Code 96285 INT INP/OBS CARE
== END 2023-08-10 18:55 | disposition home or self-care (01) ==
LOC: ED 00:41 → EDINP 02:22 → INTOOBSV 02:22 → SUATTDRO 02:22 → 4W 14:40